=== PATIENT | female | born 1975 | race Caucasian/White ===

== ENCOUNTER → 2018-08-06 | Outpatient (REF) | payer OTHER | LOC: M SFHCLERA 10:14 | PROVIDERS: ATTEND Physician Assistant | DX: R50.9 Fever, unspecified (principal) ==

== ENCOUNTER → 2019-07-28 | Outpatient (REF) | payer OTHER | LOC: M SFHCLERA 18:54 | PROVIDERS: ATTEND Physician Assistant | DX: J02.9 Acute pharyngitis, unspecified (principal) ==